=== PATIENT | male | born 1950 | race Caucasian/White ===

== ENCOUNTER 2017-04-22 12:10 | Outpatient (CLI) | payer OTHER | END 2017-04-22 12:30 | LOC: CARD 12:10 | PROVIDERS: ATTEND Internal Medicine Cardiovascular Disease | DX: R00.2 Palpitations (principal); R07.9 Chest pain, unspecified; E78.5 Hyperlipidemia, unspecified | CPT/HCPCS: 99213 ==

== ENCOUNTER 2017-07-15 12:02 | Outpatient (CLI) | payer MEDICARE | END 2017-07-15 12:15 | LOC: CARD 12:02 | PROVIDERS: ATTEND Internal Medicine Cardiovascular Disease | DX: R00.2 Palpitations (principal) | CPT/HCPCS: G0463 ==